=== PATIENT | male | born 1980 | race Two or more races ===

== ENCOUNTER 2024-09-23 09:41 | Emergency (ER) | payer MEDICAID, SELFPAY ==
[2024-09-23 09:42] VITALS: BMI 26.6
[2024-09-23 09:49] VITALS: BP 146/55; PULSE 58; RESP 18; TEMP 37.2; O2SAT 99
--- NOTE | 2024-09-23 09:59 | XR_ITS ---
Examination: Tibia-Fibula, right , 2 views Technique: Tibia-fibula AP lateral 2 views Date and time of exam: September 24, 2024 1002 hours INDICATIONS: Twisting injury to the lower leg today, lower leg pain. FINDINGS: Acute fracture distal fibular shaft with minimal offset Acute fracture medial malleolus up to 5 mm separation of the fracture site Suspicious for posterior malleolar fracture IMPRESSION: Acute fracture distal fibular shaft Acute fracture medial malleolus
--- NOTE | 2024-09-23 09:59 | XR_ITS ---
EXAMINATION: Ankle, right 3 views . Technique: Ankle AP, oblique, lateral 3 views Date and time of exam: September 23, 2024 1001 hours FINDINGS: Acute mildly displaced fracture medial malleolus Acute fracture distal fibular shaft with 2 mm offset at the fracture site No ankle dislocation Suspicious for nondisplaced posterior malleolar fracture IMPRESSION: Acute trimalleolar fractures
--- NOTE | 2024-09-23 10:00 | PD.EDANKLE ---
Lower Extremity Injury RME/HPI General Chief Complaint: Ankle/Foot Injury Stated Complaint: RIGHT ANKLE/FOOT PAIN S/P FALL Time Seen by Provider: 09/23/24 09:43 Source: patient Arrival date/time: 09/23/24 09:41 44-year-old male with no known medical history presents to the emergency room with a chief complaint of tenderness and pain to his right ankle and foot after a ground-level fall at work today. Mode of arrival: ambulatory Limitations: no limitations Related Data Previous Rx's ?Medication ?Instructions ?Recorded ibuprofen 800 mg tablet 800 mg PO TID PRN pain #30 tabs 08/07/20 hydrocodone 5 mg-acetaminophen 325 1 tab PO BID PRN pain #10 tabs 09/23/24 mg tablet ibuprofen 600 mg tablet 600 mg PO Q8H PRN fever or pain 09/23/24 #20 tabs Allergies Allergy/AdvReac Type Severity Reaction Status Date / Time No Known Allergies Allergy Verified 09/23/24 09:45 Review of Systems Review of Systems Systems Reviewed: All systems reviewed, normal except as documented Constitutional Constitutional: Reports system reviewed and no additional complaints, except as documented, Denies fatigue, Denies fever(s), Denies headache(s) and Denies weakness Eyes Eyes: Reports system reviewed and no additional complaints, except as documented, Denies blurry vision and Denies change in vision ENT Ears, Nose, Mouth, and Throat: Reports system reviewed and no additional complaints, except as documented, Denies otalgia, Denies headache(s), Denies nasal congestion, Denies throat swelling and Denies vertigo Cardiovascular Cardiovascular: Reports system reviewed and no additional complaints, except as documented, Denies chest pain, Denies dyspnea and Denies dyspnea on exertion Respiratory Respiratory: Reports system reviewed and no additional complaints, except as documented, Denies chest congestion, Denies cough, Denies dyspnea, Denies dyspnea on exertion and Denies wheezing Gastrointestinal Gastrointestinal: Reports system reviewed and no additional complaints, except as documented, Denies abdominal pain, Denies cramping, Denies nausea and Denies vomiting Genitourinary Genitourinary: Reports system reviewed and no additional complaints, except as documented, Denies dysuria and Denies hematuria Musculoskeletal Musculoskeletal: Reports system reviewed and no additional complaints, except as documented, Reports abnormal gait, Reports arthralgias, Denies back pain, Reports deformity, Reports joint swelling and Reports limited range of motion Integumentary/Breasts Skin/Breast: Reports system reviewed and no additional complaints, except as documented and Denies wounds Neurologic Neurologic: Reports system reviewed and no additional complaints, except as documented, Reports abnormal gait, Denies confusion, Denies headache(s), Denies lack of coordination, Denies vertigo and Denies weakness Psychiatric Psychiatric: Reports system reviewed and no additional complaints, except as documented, Denies anxiety, Denies confusion, Denies depression, Denies paranoia, Denies suicidal ideation and Denies tactile hallucinations Endocrine Endocrine: Reports system reviewed and no additional complaints, except as documented and Denies fatigue Hematologic/Lymphatic Hematologic/Lymphatic: Reports system reviewed and no additional complaints, except as documented and Denies lymphadenopathy Allergic/Immunologic Allergic/Immunologic: Reports system reviewed and no additional complaints, except as documented, Denies throat swelling, Denies urticaria and Denies wheezing ED Exam General Limitations: Present no limitations General appearance: Present alert and in no apparent distress Head Head exam: Present atraumatic Eye Eye exam: Present normal appearance, PERRL and EOMI ENT ENT exam: Present normal exam, normal oropharynx and mucous membranes moist Neck Neck exam: Present normal inspection, full ROM and trachea midline Chest Chest inspection: Present normal inspection and symmetric chest wall rise Respiratory Respiratory exam: Present normal lung sounds bilaterally Cardiovascular Cardiovascular exam: Present regular rate, normal rhythm and normal heart sounds Abdominal Exam Abdominal exam: Present soft and normal bowel sounds Extremities Exam Extremities exam: Present normal inspection and full ROM Expanded Lower Extremity Exam Hip/Pelvis exam: Present normal inspection Upper leg exam: Present normal inspection Knee exam: Present normal inspection Lower leg exam: Present normal inspection Ankle exam: Present normal inspection, tenderness, swelling, deformity and tenderness over talofibular lig Foot/toe exam: Present normal inspection, tenderness and swelling Gait: observed and limited by pain and unable to bear weight Back Exam Back exam: Present normal inspection and full ROM Neurological Exam Neurological exam: Present alert, oriented X3 and CN II-XII intact Psychiatric Psychiatric exam: Present normal affect and normal mood Skin Skin exam: Present warm, dry, intact and normal color Course Quality Measures none Orders Category Date Time Status Splint / Immobilizer STAT Care 09/23/24 10:58 Active XR ankle comp RT min 3V Stat Exams 09/23/24 09:59 Completed XR tibia fibula RT 2V Stat Exams 09/23/24 09:59 Completed Vital Signs Vital signs: Vital Signs Temperature 98.9 F 09/23/24 09:49 Pulse Rate 58 L 09/23/24 09:49 Respiratory Rate 18 09/23/24 09:49 Blood Pressure 146/55 H 09/23/24 09:49 Pulse Oximetry (%) 99 09/23/24 09:49 Oxygen Delivery Method Room Air 09/23/24 09:49 O2 saturation 99% within normal limits Extremity Injury, Lower MDM Narrative MDM Narrative:: 44-year-old male with no known medical history presents to the emergency room with a chief complaint of tenderness and pain to his right ankle and foot after a ground-level fall at work today. Patient is hemodynamically stable and in no apparent distress Physical examination shows tenderness, swelling, bruising to the right ankle X-ray was completed and shows an acute trimalleolar fracture Patient was educated to follow-up with his primary care provider as a referral to an mental health program specialist will be needed for further management of this fracture A posterior leg splint with a stirrup was placed. The patient was given crutches and educated to please elevate the wound and to keep his splint in place until he is seen and cleared by his mental health program specialist. Patient was educated that no weight is to be put on this fracture Patient was discharged and educated to follow-up with primary care provider in the next 24 to 48 hours and return to the emergency room for any evidence of worsening signs or symptoms Patient data External records reviewed:: [facility] previous records Clinical information provided by:: patient Social determinants that could affect healthcare access:: none Patient has the following chronic illnesses:: No chronic illness How is presenting disease/condition affected by chronic disease/condition?: no chronic disease Evaluation data The following diagnostics were reviewed and interpreted by me:: lab results and radiology exam(s) Lab and/or radiology exams considered but not ordered:: Labs and radiology exams considered in order Interpretation Summary: Ankle [id number]: Acute mildly displaced fracture medial malleolus Acute fracture distal fibular shaft with 2 mm offset at the fracture site No ankle dislocation Suspicious for nondisplaced posterior malleolar fracture IMPRESSION: Acute trimalleolar fractures Tib-fib [id number]: Acute fracture distal fibular shaft with minimal offset Acute fracture medial malleolus up to 5 mm separation of the fracture site Suspicious for posterior malleolar fracture IMPRESSION: Acute fracture distal fibular shaft Acute fracture medial malleolus Medications / Prescriptions Medications or Prescriptions considered but not ordered:: N/A Medication administrations:: N/A Consultations Consultation(s) initiated? (list below): No Diagnosis Extremity Injury, Lower Differential Diagnosis: ankle fracture and other (Trimalleolar fracture) Most likely diagnosis given after review of the tests above:: Trimalleolar fracture Admission Indicated Admission indicated?: not indicated Admission Request Was there a request for admission?: No Disposition Plan Disposition Plan: Discharge Discharge Attestation Discharge Attestation: The patient and all family members were given an opportunity to ask questions and understood the discharge instructions. Discharge instructions specifically effects, indications for sooner follow up or return to the emergency department, and the expected course of current diagnosis. Patient condition: Stable Discharge Plan Plan Patient Disposition: HOME (Self Care) Discharge Disposition comment: Stable Prescriptions/Referrals Prescriptions/Med Rec: New hydrocodone-acetaminophen 5-325 mg tablet 1 tab PO BID MDD 10mg PRN (Reason: pain) Qty: 10 0RF ibuprofen 600 mg tablet 600 mg PO Q8H PRN (Reason: fever or pain) Qty: 20 0RF No Action ibuprofen 800 mg tablet 800 mg PO TID PRN (Reason: pain) Qty: 30 0RF Referrals: No Primary/Family,Physician [Primary Care Provider] - In 1 week Problem List Clinical Impression: Closed trimalleolar fracture of ankle Patient/Caregiver Discharge Instructions Education Materials: ED Ankle Fracture, ED Fracture, Lower Extremity Additional Instructions: Please follow-up with your primary care provider in the next 24 to 48 hours You will need a referral to an mental health program specialist for further management of this fracture For any evidence of worsening signs or symptoms return to the emergency room immediately Print Language: Hebrew Stand Alone Forms: Radha Award Info., Work/School Release, Patient Portal Info Letter CASI/PREETHI Supervising Physician CASI/PREETHI Supervising Physician: Dr Flanagan
== END 2024-09-23 12:05 | disposition home or self-care (01) ==
PROVIDERS: Emergency Provider Emergency Medicine
DX: S82.851A Displaced trimalleolar fracture of right lower leg, initial encounter for closed fracture (principal); W18.30XA Fall on same level, unspecified, initial encounter; Y99.0 Civilian activity done for income or pay
CPT/HCPCS: 29515; 73590; 73610; 99283